=== PATIENT | female | born 1975 | race Caucasian/White ===

== ENCOUNTER → 2021-05-03 | Outpatient (CLI) | payer BC ==
--- NOTE | 2021-05-03 16:44 | Diagnostic Imaging Report ---
INDICATION: Right thumb injury 2 views of the right thumb show no fracture, dislocation or other acute abnormalities. IMPRESSION: Negative right thumb Dictated by: Dictated on workstation # [id number]
== END ==
LOC: RAD FS 16:23
PROVIDERS: ATTEND Pediatrics
DX: S69.91XA Unspecified injury of right wrist, hand and finger(s), initial encounter (principal); X58.XXXA Exposure to other specified factors, initial encounter
CPT/HCPCS: 73120